=== PATIENT | female | born 1960 ===

== ENCOUNTER 2017-08-13 07:20 | Day surgery (SDC) | payer MEDICARE, SELFPAY ==
[2017-08-13 07:39] VITALS: BMI 37.8
[2017-08-13] MEDS ORDERED: Lactated Ringer's 500 ML IV ONE (09:14)
[2017-08-13] MEDS ORDERED: Propofol 10 mg/ml Inj (20 ML) ONE (09:24)
[2017-08-13] MEDS ORDERED: Midazolam 2 MG/2 ML VIAL ONE (09:25)
[2017-08-13] MEDS ORDERED: Lidocaine 2% Inj (20ml) ONE (09:26)
[2017-08-13 09:53] VITALS: TEMP 96.9
[2017-08-13 10:55] VITALS: BP 115/67; PULSE 70; RESP 18; O2SAT 99
== END 2017-08-13 10:45 | disposition home or self-care (01) ==
LOC: C.ENDO 07:20
PROVIDERS: ATTEND Internal Medicine Gastroenterology
DX: K29.00 Acute gastritis without bleeding (principal); B96.81 Helicobacter pylori [H. pylori] as the cause of diseases classified elsewhere; K44.9 Diaphragmatic hernia without obstruction or gangrene
CPT/HCPCS: 43239; 88305; J2250; J2704; J7120

== ENCOUNTER 2018-01-02 05:38 | Day surgery (SDC) | payer MEDICARE, SELFPAY ==
[2017-09-01 11:30] VITALS: BMI 37.8
[2018-01-02] MEDS ORDERED: Propofol 10 mg/ml Inj (20 ML) ONE (07:42)
[2018-01-02] MEDS ORDERED: Midazolam 2 MG/2 ML VIAL ONE (07:44)
--- NOTE | 2018-01-02 07:46 | PCM.SURG1 ---
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 Patient counseled on the risks of addiction, physical or psychological dependence, and overdose associated with opioid drugs and the danger of taking opioid drugs with alcohol and other central nervous system depressants, and cautioned patient on storage and disposal.
[2018-01-02] MEDS ORDERED: Bupivacaine HCl 0.5% PF (10 ml) Inj ONE ×2 (08:02→08:03)
[2018-01-02] MEDS ORDERED: ceFAZolin IV 2 gm in Dextrose 2 GM/50 ML BAG IVPB ONE (08:03)
[2018-01-02] MEDS ORDERED: Lidocaine/Epinephrine 1% 1:100000 10 ML IJ ONE (08:03)
[2018-01-02] MEDS ORDERED: Morphine 4 MG/ML VIAL ONE ×2 (09:59)
[2018-01-02] MEDS ORDERED: HYDROmorphone 0.5 mg/0.5 ml ISec ONE (10:40)
[2018-01-02] MEDS: HYDROmorphone 0.5 mg/0.5 ml ISec IVP PRN ×5 (10:40→11:21)
[2018-01-02] MEDS ORDERED: Bupivacaine HCl 0.25% PF (10 ml) Inj ONE (10:56)
[2018-01-02] MEDS ORDERED: Lactated Ringer's 1,000 ML IV ONE (12:30)
--- NOTE | 2018-01-02 12:30 | PCM.SURG1 ---
Surgeon's Initial Post Op Note - Surgeon's Notes Surgeon: Peter Nicole mD Fastener Technologist: Caroline Rojo PA_C Type of Anesthesia: General Endo, None Anesthesia Administered By: Dr. Bal/Go BLACK Pre-Operative Diagnosis: Left shoulder rotator cuff tear Operative Findings: same Post-Operative Diagnosis: same Operation Performed: Left shoulder arthroscopic rotator cuff repair Specimen/Specimens Removed: none Estimated Blood Loss: EBL {In ML}: 5 Blood Products Given: N/A Drains Used: No Drains Post-Op Condition: Fair Date of Surgery/Procedure: 01/02/18 Time of Surgery/Procedure: 12:30 Results - Vital Signs Recent Vital Signs: Last Vital Signs Temp 97.5 F L 01/02/18 10:23 Pulse 84 01/02/18 11:45 Resp 8 L 01/02/18 11:45 BP 123/84 01/02/18 11:45 Pulse Ox 100 01/02/18 11:45 - Impressions 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 Patient counseled on the risks of addiction, physical or psychological dependence, and overdose associated with opioid drugs and the danger of taking opioid drugs with alcohol and other central nervous system depressants, and cautioned patient on storage and disposal.
[2018-01-02] MEDS ORDERED: HYDROmorphone 1 mg/ml ISec IVP STA (12:49)
--- NOTE | 2018-01-02 12:53 | PCM.ANESB1 ---
Interscalene Block - Brachial Plexus Date of Procedure: 01/02/18 Anesthesiologist: Gena Pre-Procedure Diagnosis: Left shoulder rotator cuff tear Post-Procedure Diagnosis: Left shoulder arthroscopy , RCTR Procedure Performed: Interscalene Block of Brachial Plexus Left - Procedure Interscalene Block of Brachial Plexus: This procedure was explained to the patient that it is for post-operative pain management. Consent was obtained after a thorough discussion with the patient regarding the benefits and possible complications of local anesthetic block of the Brachial Plexus at the Interscalene area. The patient was brought to the Recovery Room and standard monitors were applied. Time out was held with the circulating nurse to confirm the correct surgery and appropriate block. After applying Oxygen by nasal cannula and administering IV Sedation, the patient's head was gently rotated away from the_operative shoulder and the anterior scalene groove was carefully palpated. The ultrasound transducer was then applied to the skin in the transverse plane and the brachial plexus was visualized lateral to the carotid artery and in between the anterior and middle scalene muscles. After identification,the anterior lateral portion of the neck was prepped with Betadine solution three times and Lidocaine 1% was injected subcutaneously for topical analgesia. At this point, a # 22 gauge Stimuplex 2 inches insulated needle was inserted into the interscalene groove and directed in a caudal and midline direction. The needle was inserted lateral to the ultrasound transducer in-plane towards the brachial plexus in a [id number] direction. Needle advancement was performed carefully under direct ultrasound visualization. Nerve stimulator was used and twitched of the affected extremity including the hand brachialis muscles, biceps and the deltoid was obtained at a current of _0.46____MA. After repeated negative aspiration,_30____cc of__0.25% Bupivacaine_were injected. Under ultrasound guidance the local anesthetics were observed surrounding the roots of the brachial plexus. The needle was removed intact and sterile dressing was applied. The patient had stable vital signs, was conscious and in no apparent distress. The patient tolerated the interscalene block of the bracheal plexus well with stable vss.
[2018-01-02 14:04] VITALS: BP 121/73; PULSE 101; RESP 18; TEMP 98; O2SAT 100
--- NOTE | 2018-01-02 21:43 | OP ---
PROCEDURE DATE: 01/02/2018 PREOPERATIVE DIAGNOSIS: Left shoulder rotator cuff tear and impingement. POSTOPERATIVE DIAGNOSIS: Left shoulder rotator cuff tear and impingement. PROCEDURE: Left shoulder arthroscopy with arthroscopic cuff repair, subacromial decompression surgery. SURGEON: Johan Cool MD LAMINATOR PREFORMS: Cristal Mosqueda, physician assistant technician. Jaylin was scrubbed and present throughout the entire case and assisted in the patient positioning, holding the camera during the repair and wound closure. TYPE OF ANESTHESIA: General. COMPLICATIONS: None. ESTIMATED BLOOD LOSS: 5 mL. INDICATION FOR PROCEDURE: This is a 57-year-old female who presented with complaints of left shoulder pain. Clinical examination was positive for pain and some weakness with resisted abduction and forward flexion. MRI examination was consistent with a tear of the supraspinatus. After a period of failed nonsurgical management including steroid injection, physical therapy, activity modification, recommendations were for left shoulder arthroscopy. The risks, benefits and alternatives of procedure were discussed with the patient and informed consent was obtained. DESCRIPTION OF PROCEDURE: After surgical site was finally verified in the preoperative holding area, the patient was taken to the operating room, placed supine on the operating room table. After administration of general anesthesia, the patient received 2 gm of Ancef IV. The patient was positioned in a lateral decubitus position with left shoulder up towards the ceiling. Care was taken to make sure all bony prominences and nerves were well padded and protected. Venodyne boots were placed on the bilateral lower extremities and the left upper extremity was prepped and draped in the usual sterile fashion. The left upper extremity was positioned in the traction device with 10 pounds of traction. At this point, the bony landmarks were identified about the left shoulder and portal sites were injected with a total of 10 mL of 1% lidocaine with epinephrine. Posterior arthroscopy portal was established. The arthroscope was inserted into the glenohumeral joint. The chondral surface of the glenoid and humeral head appeared to have really minimal changes. The anterior rotator interval was identified under direct arthroscopic visualization and anterior portal was established. Biceps tendon was visualized and appeared to be intact and situated in the intertubercular groove. The biceps anchor was probed and was noted to be stable. The patient was noted to have some fraying of the anterior labrum and this was debrided using a full-radius shaver. The inferior and posterior labrum appeared to be intact. Subscapularis was identified and was noted to have some mild fraying, but otherwise was intact. The supraspinatus was visualized and the patient was noted to have a large crescent-type tear of the supraspinatus. Through the articular side of this, free margin of the cuff was debrided. At this point, no loose bodies were appreciated. At this point, the arthroscope was inserted into the subacromial space to the posterior portal. Lateral portal was established and a bursectomy was performed, which revealed excellent visualization of the anterior surface of the acromion as well as the rotator cuff tear. Using the shaver in a cecile-like fashion, acromioplasty was performed. At this point, attention was directed to the rotator cuff, the tear was debrided on the bursal side as was the footprint. Once the tear configuration had been evaluated, a decision was made to fix the cuff using first two margin convergence sutures converting it from a large crescent to a small crescent and then inserting two Saleh and Nephew anchors into the footprint and doing a [id number] repair using mattress sutures. Once all the sutures were tied, the cuff was probed and was noted to be firmly fixed on to the footprint. Satisfied, all the instruments were removed and all portal sites were closed using interrupted 2-0 Vicryl suture and 3-0 nylon. A sterile dressing was applied and abduction pillow sling was placed. The patient was awakened from the procedure and taken to recovery room in stable condition. Johan Cool MD
== END 2018-01-02 17:33 | disposition home or self-care (01) ==
LOC: C.SDS 05:38
PROVIDERS: ATTEND Orthopaedic Surgery
DX: M75.102 Unspecified rotator cuff tear or rupture of left shoulder, not specified as traumatic (principal)
CPT/HCPCS: 29826; 29827; J0171; J0690; J1170; J2250; J2270; J2704; J3010; J7120